=== PATIENT | male | born 1990 | race Caucasian/White ===

== ENCOUNTER 2017-01-03 14:40 | Observation (INO) | payer MEDICAID ==
[~2017-01-03] VITALS: Ht 177.8 cm; Wt 137.0 kg
[~2017-01-03 14:40] MED LIST: LORA-446 PO; METO50TA82 PO
[2017-01-03] MEDS ORDERED: LORazepam 2 MG/ML, 1ML IVPush ONE (15:30)
[2017-01-03] MEDS ORDERED: SODIUM CHLORIDE 0.9% 1,000ML IVBOLUS ONE (15:30)
[2017-01-03] MEDS ORDERED: SODIUM CHLORIDE FLUSH 10ML SYR IVF ONE (15:30)
[2017-01-03] MEDS ORDERED: LORazepam 2 MG/ML, 1ML ONE (15:39)
[2017-01-03 15:49] LABS: ASPARTATE AMINO TRANSFERASE 17 U/L (15-37); BLOOD UREA NITROGEN 21 mg/dL (7-18)
[2017-01-03 15:57] LABS: ACETAMINOPHEN < 2 mcg/mL (10-30)
[2017-01-03] MEDS ORDERED: HYDR50TA13 PO (16:52)
[2017-01-03] MEDS ORDERED: LISI-170 PO (16:52)
[2017-01-03] MEDS ORDERED: METH500T97 PO (16:52)
[2017-01-03 17:02] LABS: DAU SCREEN DISCLAIMER
[2017-01-03] MEDS ORDERED: POLYETHYLENE GLYCOL 17 GM PACKET PO PRN (21:00)
[2017-01-03] MEDS ORDERED: ACETAMINOPHEN 325 MG TABLET PO PRN (21:00)
[2017-01-03] MEDS ORDERED: BISACODYL 10 MG SUPP PR PRN (21:00)
[2017-01-03] MEDS ORDERED: DOCUSATE 100 MG CAPSULE PO PRN (21:00)
[2017-01-03] MEDS ORDERED: TRAZODONE 50MG TABLET PO PRN (21:00)
[2017-01-03 21:25] VITALS: BP 144/88
[2017-01-03] MEDS: METHOCARBAMOL 500 MG TABLET PO SCH (21:41)
[2017-01-03] MEDS: hydrOXyzine 50MG TABLET PO SCH (21:42)
[2017-01-04 05:16] LABS: BLOOD UREA NITROGEN 20 mg/dL (7-18)
[2017-01-04 08:00] VITALS: BP 139/87
[2017-01-04] MEDS: hydrOXyzine 50MG TABLET PO SCH (08:59)
[2017-01-04] MEDS: METHOCARBAMOL 500 MG TABLET PO SCH (08:59)
[2017-01-04] MEDS ORDERED: AMLODIPINE 5 MG TABLET PO SCH (09:00)
[2017-01-04] MEDS ORDERED: LISINOPRIL 20 MG TABLET PO SCH (09:00)
[2017-01-04] MEDS ORDERED: AMLO5TAB2 PO (13:51)
== END 2017-01-04 16:14 ==
LOC: ED 18:15 → 3E 20:43
PROVIDERS: ADMIT Internal Medicine; ATTEND Internal Medicine
DX: F23 Brief psychotic disorder (principal); R45.851 Suicidal ideations; I10 Essential (primary) hypertension; F98.8 Other specified behavioral and emotional disorders with onset usually occurring in childhood and adolescence; M41.9 Scoliosis, unspecified; F41.9 Anxiety disorder, unspecified; F32.9 Major depressive disorder, single episode, unspecified; R79.89 Other specified abnormal findings of blood chemistry; F15.10 Other stimulant abuse, uncomplicated; F14.10 Cocaine abuse, uncomplicated; F12.10 Cannabis abuse, uncomplicated; F22 Delusional disorders; R45.850 Homicidal ideations
CPT/HCPCS: 36415; 80048; 80053; 80307; 80329; 81001; 85025; 87086; 96361; 96374; 99285; G0378; J2060; J7030; G0480